=== PATIENT | male | born 1985 | race Asian ===

== ENCOUNTER 2018-08-25 12:15 | Inpatient (IN) | payer BC ==
[2018-08-25] VITALS (13 sets, daily range): BP systolic 77–105; BP diastolic 39–88
[~2018-08-25] VITALS: Ht 152.4 cm; Wt 41.4 kg
[2018-08-25] MEDS ORDERED: MORP10DI10 PO (12:21)
[2018-08-25] MEDS ORDERED: SODIUM CHLORIDE 0.9% 1000ML BAG (SEPSIS BOLUS) IV ONE (12:30)
[2018-08-25] MEDS ORDERED: ONDANSETRON HCL 4MG/2ML INJ IV STA (12:37)
[2018-08-25 13:16] LABS: BASOPHILS % 0.3 % (0.0-2.0); EOSINOPHILS % 0.2 % (0.0-5.0); HEMATOCRIT. 32.6 % (42.0-52.0); LYMPHOCYTES % 12.1 % (20.0-50.0); MEAN CORPUSCULAR HEMOGLOBIN 28.9 pg (28.0-32.0); MEAN CORPUSCULAR VOLUME 85.9 fL (80.0-94.0); MEAN PLATELET VOLUME 8.8 fl (7.4-10.4); MONOCYTES % 9.9 % (2.0-8.0); NEUTROPHILS % 77.5 % (40.0-76.0); PLATELET 576 x1000/uL (130-400); RED BLOOD CELL COUNT 3.79 mill/uL (4.7-6.1); RED CELL DISTRIBUTION WIDTH 18.1 % (11.6-14.6)
[2018-08-25 13:21] LABS: CHLORIDE 88 mEq/L (98-107)
[2018-08-25 13:22] LABS: PROTHROMBIN TIME 10.4 sec (9.1-11.1)
[2018-08-25] MEDS ORDERED: VANCOMYCIN 1 G PREMIX 200 ML IV ONE (14:00)
[2018-08-25] MEDS ORDERED: PIPERACILLIN/TAZ 3.375G PREMIX 50 ML IV ONE (14:00)
[2018-08-25] MEDS ORDERED: NOREPINEPHRINE 4 MG in DEXT 5% WATER 246 ML IV ONE (15:45)
[2018-08-25] MEDS ORDERED: NOREPINEPHRINE 4MG/250ML PMX 250 ML IV ONE (15:45)
[2018-08-25] MEDS ORDERED: MORPHINE SULFATE 4 MG/ML CPJ (NOT FOR IM USE) IV ONE (16:45)
[2018-08-25 17:17] LABS: CLARITY URINE CLOUDY (CLEAR); COLOR URINE DARK YELLOW (YELLOW); KETONES URINE NEGATIVE (NEGATIVE); LEUKOCYTE ESTERASE URINE NEGATIVE (NEGATIVE); NITRITE URINE NEGATIVE (NEGATIVE); OCCULT BLOOD URINE NEGATIVE (NEGATIVE); PROTEIN URINE TRACE (NEGATIVE); SPECIFIC GRAVITY URINE 1.021 (1.005-1.030); UROBILINOGEN URINE 0.2 E.U./dL (0.2-1.0)
[2018-08-25] MEDS ORDERED: HYDROCODONE/ACETAMINOPHEN 5/325MG TABLET PO PRN (17:45)
[2018-08-25] MEDS: MORPHINE SULFATE 10MG/5ML ORAL SOLN UDC PO NR ×2 (18:02→20:50)
[2018-08-25] MEDS: SODIUM CHLORIDE 0.9% 1,000 ML IV SCH (18:32)
[2018-08-25] MEDS ORDERED: MORPHINE SULFATE 10MG/5ML ORAL SOLN UDC PO PRN (19:27)
[2018-08-25] MEDS ORDERED: NOREPINEPHRINE 16 MG in DEXT 5% WATER 234 ML IV PRN (19:45)
[2018-08-25] MEDS ORDERED: KCL 20MEQ/100ML PREMIX 100 ML IV NR (21:00)
[2018-08-25] MEDS ORDERED: CEFTRIAXONE 1 G PREMIX 50 ML IV SCH (22:00)
[2018-08-25] MEDS: ONDANSETRON HCL 4MG/2ML INJ IV PRN (23:40)
[2018-08-26] VITALS (80 sets, daily range): BP systolic 80–136; BP diastolic 50–71
[2018-08-26] MEDS ORDERED: SIMETHICONE 80MG TABLET CHEW PO PRN
[2018-08-26] MEDS ORDERED: MAGNESIUM/ALUMINUM HYDROXIDE/SIMETHICONE 30ML UDC PO PRN
[2018-08-26] MEDS: SODIUM CHLORIDE 0.9% 1,000 ML IV SCH ×4 (03:18→20:05)
[2018-08-26 05:52] LABS: BASOPHILS % 0.2 % (0.0-2.0); EOSINOPHILS % 0.1 % (0.0-5.0); HEMATOCRIT. 33.1 % (42.0-52.0); HEMOGLOBIN. 10.8 g/dL (14.0-18.0); LYMPHOCYTES % 7.4 % (20.0-50.0); MEAN CORPUSCULAR HEMOGLOBIN 28.1 pg (28.0-32.0); MEAN CORPUSCULAR VOLUME 86.4 fL (80.0-94.0); MEAN PLATELET VOLUME 8.9 fl (7.4-10.4); MONOCYTES % 6.5 % (2.0-8.0); NEUTROPHILS % 85.8 % (40.0-76.0); PLATELET 488 x1000/uL (130-400); RED BLOOD CELL COUNT 3.83 mill/uL (4.7-6.1); RED CELL DISTRIBUTION WIDTH 17.7 % (11.6-14.6)
[2018-08-26 05:59] LABS: CHLORIDE 91 mEq/L (98-107)
[2018-08-26] MEDS: ONDANSETRON HCL 4MG/2ML INJ IV PRN ×2 (06:29→20:04)
[2018-08-26] MEDS ORDERED: KCL 20MEQ/100ML PREMIX 100 ML IV SCH (08:00)
[2018-08-26 08:38] LABS: BG BASE EXCESS 17.4 mmol/L (-2.0-2.0); BG CARBOXYHEMOGLOBIN 0.2 % (0.5-1.5); BG DEOXYHEMOGLOBIN 4.1 % (0.0-5.0); BG HCO3 ACT 41.2 mmol/L (22.0-26.0); BG METHEMOGLOBIN 0.4 % (0.0-1.5); BG OXYGEN SATURATION 95.9 % (92.0-98.5); BG OXYHEMOGLOBIN 95.3 % (94.0-97.0); BG PCO2 44.9 mmHg (35.0-45.0); BG PO2 80.8 mmHg (75.0-100.0); BG SAMPLE SITE RIGHT BRACHIAL; BG TOTAL HEMOGLOBIN 11.3 g/dL (12.0-18.0); BG VENT MODE ROOM AIR
[2018-08-26] MEDS ORDERED: KCL 20MEQ/100ML PREMIX 100 ML IV NR (11:00)
[2018-08-26] MEDS ORDERED: LIDOCAINE HCL/PF 1% 2ML VIAL ONE (11:20)
[2018-08-26] MEDS ORDERED: PIPERACILLIN/TAZOBACTAM 3.375 G in DEXT 5% WATER 100 ML IV SCH (14:00)
[2018-08-26 14:17] LABS: PHOSPHORUS 6.6 mg/dL (2.5-4.9)
[2018-08-26] MEDS: PHENYLEPHRINE 40 MG in DEXT 5% WATER 246 ML IV PRN ×2 (14:29→18:52)
[2018-08-26] MEDS ORDERED: MORPHINE SULFATE 10MG/5ML ORAL SOLN UDC PO PRN (15:27)
[2018-08-26] MEDS: PIPERACILLIN/TAZ 2.25G PREMIX 50 ML IV SCH ×2 (15:56→18:10)
[2018-08-26] MEDS: MORPHINE SULFATE 4 MG/ML CPJ (NOT FOR IM USE) IV PRN ×2 (15:57→20:39)
[2018-08-26] MEDS ORDERED: KCL 20MEQ/100ML PREMIX 100 ML IV ONE ×2 (17:45→19:45)
[2018-08-26] MEDS: KCL 20MEQ/100ML PREMIX 100 ML IV SCH ×3 (18:11→21:32)
[2018-08-26 18:13] LABS: HEMATOCRIT 26.6 % (42.0-52.0); HEMOGLOBIN 7.5 g/dL (14.0-18.0)
[2018-08-26] MEDS: BLOOD SUGAR DIAGNOSTIC STRIP TEST SCH (18:58)
[2018-08-26] MEDS ORDERED: TOTAL PARENTERAL NUTRITION IV SCH (21:00)
[2018-08-26] MEDS: LORAZEPAM 2MG/ML CPJ IV PRN (21:59)
[2018-08-27] VITALS (77 sets, daily range): BP systolic 95–132; BP diastolic 54–80
[2018-08-27] MEDS: PIPERACILLIN/TAZ 2.25G PREMIX 50 ML IV SCH ×5 (00:22→23:49)
[2018-08-27] MEDS: BLOOD SUGAR DIAGNOSTIC STRIP TEST SCH ×5 (00:36→23:50)
[2018-08-27 00:41] LABS: HEMATOCRIT 26.7 % (42.0-52.0); HEMOGLOBIN 8.7 g/dL (14.0-18.0)
[2018-08-27] MEDS: MORPHINE SULFATE 4 MG/ML CPJ (NOT FOR IM USE) IV PRN ×4 (02:27→23:50)
[2018-08-27] MEDS: SODIUM CHLORIDE 0.9% 1,000 ML IV SCH (05:34)
[2018-08-27 07:21] LABS: BASOPHILS % 0.2 % (0.0-2.0); EOSINOPHILS % 0.4 % (0.0-5.0); HEMATOCRIT. 28.1 % (42.0-52.0); HEMOGLOBIN. 9.3 g/dL (14.0-18.0); LYMPHOCYTES % 8.8 % (20.0-50.0); MEAN CORPUSCULAR HEMOGLOBIN 29.1 pg (28.0-32.0); MEAN CORPUSCULAR VOLUME 88.3 fL (80.0-94.0); MEAN PLATELET VOLUME 9.3 fl (7.4-10.4); MONOCYTES % 7.8 % (2.0-8.0); NEUTROPHILS % 82.8 % (40.0-76.0); PLATELET 369 x1000/uL (130-400); RED BLOOD CELL COUNT 3.19 mill/uL (4.7-6.1); RED CELL DISTRIBUTION WIDTH 17.8 % (11.6-14.6)
[2018-08-27] MEDS ORDERED: ALBUMIN HUMAN 25GM/100ML (25%) IV NR (07:45)
[2018-08-27 09:02] LABS: PHOSPHORUS 3.3 mg/dL (2.5-4.9)
[2018-08-27] MEDS ORDERED: DEXTROSE 50% WATER 50ML SYRINGE IV PRN ×2 (10:45→11:00)
[2018-08-27] MEDS ORDERED: POTASSIUM CHLORIDE INJ 40 MEQ in DEXT 5% WATER 250 ML IV ONE (11:00)
[2018-08-27] MEDS: HYDROMORPHONE HCL/PF 2MG/ML CPJ IV PRN ×2 (11:36→19:48)
[2018-08-27] MEDS: PANTOPRAZOLE SODIUM 40 MG/VIAL IV SCH ×2 (12:41→17:35)
[2018-08-27] MEDS: INSULIN LISPRO 100 UNITS/ML SUBCUT SCH ×3 (12:41→23:49)
[2018-08-27 12:45] LABS: HEMOGLOBIN 8.7 g/dL (14.0-18.0)
[2018-08-27] MEDS ORDERED: BLOOD SUGAR DIAGNOSTIC STRIP TEST SCH (12:50)
[2018-08-27] MEDS: ONDANSETRON HCL 4MG/2ML INJ IV PRN ×3 (15:49→23:49)
[2018-08-27] MEDS: SUCRALFATE 1 G/10 ML UDC PO SCH ×2 (17:35→23:49)
[2018-08-27 18:45] LABS: HEMATOCRIT 28.2 % (42.0-52.0); HEMOGLOBIN 8.9 g/dL (14.0-18.0)
[2018-08-27] MEDS ORDERED: TOTAL PARENTERAL NUTRITION 1,600 ML IV SCH (21:00)
[2018-08-28] VITALS (20 sets, daily range): BP systolic 95–132; BP diastolic 62–77
[2018-08-28] MEDS: LORAZEPAM 2MG/ML CPJ IV PRN (01:48)
[2018-08-28] MEDS: ONDANSETRON HCL 4MG/2ML INJ IV PRN (05:22)
[2018-08-28] MEDS: PIPERACILLIN/TAZ 2.25G PREMIX 50 ML IV SCH ×2 (05:22→11:22)
[2018-08-28] MEDS: INSULIN LISPRO 100 UNITS/ML SUBCUT SCH ×2 (05:23→12:05)
[2018-08-28] MEDS: BLOOD SUGAR DIAGNOSTIC STRIP TEST SCH ×2 (05:25→11:30)
[2018-08-28] MEDS: HYDROMORPHONE HCL/PF 2MG/ML CPJ IV PRN ×2 (05:25→11:29)
[2018-08-28] MEDS: SUCRALFATE 1 G/10 ML UDC PO SCH ×2 (05:25→11:29)
[2018-08-28 07:28] LABS: BASOPHILS % 0.1 % (0.0-2.0); EOSINOPHILS % 2.4 % (0.0-5.0); HEMATOCRIT. 28.3 % (42.0-52.0); LYMPHOCYTES % 11.5 % (20.0-50.0); MEAN CORPUSCULAR HEMOGLOBIN 28.5 pg (28.0-32.0); MEAN CORPUSCULAR VOLUME 89.2 fL (80.0-94.0); MEAN PLATELET VOLUME 10.1 fl (7.4-10.4); MONOCYTES % 6.9 % (2.0-8.0); NEUTROPHILS % 79.1 % (40.0-76.0); PLATELET 360 x1000/uL (130-400); RED BLOOD CELL COUNT 3.17 mill/uL (4.7-6.1); RED CELL DISTRIBUTION WIDTH 17.4 % (11.6-14.6)
[2018-08-28] MEDS: MORPHINE SULFATE 4 MG/ML CPJ (NOT FOR IM USE) IV PRN ×2 (08:12→13:13)
[2018-08-28] MEDS: PANTOPRAZOLE SODIUM 40 MG/VIAL IV SCH (08:12)
[2018-08-28] MEDS ORDERED: FAT EMULSIONS 500 ML IV SCH (21:00)
[2018-08-28] MEDS ORDERED: TOTAL PARENTERAL NUTRITION 1,300 ML IV SCH (21:00)
[2018-08-29] MEDS ORDERED: BLOOD SUGAR DIAGNOSTIC STRIP TEST SCH (22:00)
== END 2018-08-28 16:06 | disposition short-term general hospital (02) | DRG 871 ==
LOC: ER 12:15 → EDBEDREQ 16:39 → EDBEDREQTM 16:39 → EDBEDREQSVC 16:39 → ENRESERV 17:12 → CVICU 18:45
PROVIDERS: ADMIT Emergency Medicine; ATTEND Emergency Medicine
DX: A41.9 Sepsis, unspecified organism (principal); R65.21 Severe sepsis with septic shock; N17.0 Acute kidney failure with tubular necrosis; J69.0 Pneumonitis due to inhalation of food and vomit; E46 Unspecified protein-calorie malnutrition; K92.0 Hematemesis; N13.6 Pyonephrosis; Z68.1 Body mass index [BMI] 19.9 or less, adult; D64.9 Anemia, unspecified; E86.0 Dehydration; E87.6 Hypokalemia; G89.29 Other chronic pain; N18.9 Chronic kidney disease, unspecified; Z51.5 Encounter for palliative care; I95.9 Hypotension, unspecified; D47.3 Essential (hemorrhagic) thrombocythemia; R73.9 Hyperglycemia, unspecified; Z93.3 Colostomy status; Z93.2 Ileostomy status; Z85.038 Personal history of other malignant neoplasm of large intestine; Z79.899 Other long term (current) drug therapy; Z90.49 Acquired absence of other specified parts of digestive tract; Z92.21 Personal history of antineoplastic chemotherapy
CPT/HCPCS: 36415; 36600; 71045; 74176; 76770; 78582; 80048; 82375; 82805; 82962; 83605; 83735; 84100; 84132; 84145; 84484; 85014; 85018; 93005; 96361; 96365; 96366; 96367; 96375; 97162; 99285; A6261; A9558; C9113; J0696; J1170; J1815; J2060; J2270; J2370; J2405; J2543; J3370; J3480; J3490; J7030; J7042; J7060; A4315